=== PATIENT | female | born 1950 | race Caucasian/White ===

== ENCOUNTER 2021-06-12 03:20 | Inpatient (IN) | payer OTHER ==
[~2021-06-12] VITALS: Ht 160 cm; Wt 67.6 kg
[2021-06-12 03:25] VITALS: BP 145/80
--- NOTE | 2021-06-12 03:25 | NUR ---
PT [facility]. TAKEN TO BED 8
--- NOTE | 2021-06-12 03:40 | NUR ---
[facility] [facility], PER OFFICER ANTONIO PT. CALLED PD FOR STOLEN CAR. PT. STATES SHE IS ON HER WAY TO DAUGHTER'S HOUSE AND CAR WAS STOLEN. PT. CONFUSED ON HOW CAR GOT STOLEN AND CANNOT REMEMBER HOW SHE GOT HERE. PT. DENIES N/V/D/FEVER, ONLY STATING SHE ROLLED HER RIGHT ANKLE ON A CURB. PT. RATES PAIN 8/10 ON THE PAIN SCALE AT THIS TIME. SKIN IS PINK/WARM/DRY; AAOX3 BUT NOT TO LOCATION. PT. HAS EVEN AND STEADY GAIT; HR EVEN AND REGULAR; PT DENIES ANY FEVER, CP, SOB, OR COUGH AT THIS TIME; VSS; PATIENT POSITIONED FOR COMFORT; HOB ELEVATED; BEDRAILS UP X2; BED DOWN. ER MADE AWARE OF PT STATUS. PMH: DM 2, DEPRESSION ALLERGIES: NKDA Addendum: 06/12/21 at 0429 by MEDZSD MEDHX- HTN, DEPRESSION, HLYD, DM
--- NOTE | 2021-06-12 03:55 | NUR ---
EKG AT BEDSIDE
--- NOTE | 2021-06-12 03:58 | NUR ---
PER DELORES #[id number], SPOKE IN CONTACT WITH DAUGHTER (MINDI ZELAYA) AND STATES WILL BE COMING TO HOSPITAL FROM [place], [place].
--- NOTE | 2021-06-12 04:03 | NUR ---
PT TAKEN TO RADIOLOGY
--- NOTE | 2021-06-12 04:15 | NUR ---
PT RETURN FROM RADIOLOGY
--- NOTE | 2021-06-12 04:29 | NUR ---
PT. TAKEN TO BATHROOM VIA W/C FOR URINE SAMPLE.
--- NOTE | 2021-06-12 04:40 | NUR ---
LABS DRAWN AND TAKEN TO LAB.
[2021-06-12 04:55] LABS: BASOPHILS # (AUTO) 0.1 K/uL (0.00-0.22); BASOPHILS % (AUTO) 0.8 % (0.0-2.0); EOSINOPHILS # (AUTO) 0.1 K/uL (0-0.4); EOSINOPHILS % (AUTO) 1.7 % (0.0-4.0); HEMATOCRIT 39.8 % (36-48); HEMOGLOBIN 13.6 g/dL (12.0-16.0); LYMPHOCYTES # (AUTO) 1.4 K/uL (2.5-16.5); MEAN CORPUSCULAR HEMOGLOBIN 31 pg (27-31); MEAN CORPUSCULAR HGB CONC 34 g/dL (33-37); MEAN CORPUSCULAR VOLUME 89.7 fL (80-94); MONOCYTES # (AUTO) 0.6 K/uL (0.8-1.0); MONOCYTES % (AUTO) 7.8 % (1.7-9.3); NEUTROPHILS % (AUTO) 70.7 % (42.2-75.2); PLATELET COUNT (AUTO) 242 K/uL (140-450); RED BLOOD CELL COUNT(AUTO) 4.44 MIL/uL (4.20-5.40); RED CELL DISTRIBUTION WIDTH 13.1 % (11.6-13.7); WHITE BLOOD COUNT (AUTO) 7.1 K/uL (4.8-10.8)
[2021-06-12 05:12] LABS: ALBUMIN 4.3 g/dL (3.4-5.0); ANION GAP 8.3 (8-16); ASPARTATE AMINOTRANSFERASE 40 U/L (15-37); CARBON DIOXIDE 34.7 mmol/L (21-32); CHLORIDE 95 mmol/L (98-107); CREATININE 1.4 mg/dL (0.6-1.3); GFR ARICAN-AMERICAN 48 mL/min (>90); GLUCOSE 117 mg/dL (74-106); SODIUM SERUM 135 mmol/L (136-145); TOTAL BILIRUBIN 0.6 mg/dL (0.0-1.0); UREA NITROGEN, BLOOD 19 mg/dL (7-18)
[2021-06-12 05:14] LABS: ACETAMINOPHEN < 0.5 ug/ml (10-30); SALICYLATE < 2.8 mg/dL (2.8-20.0)
[2021-06-12 05:18] LABS: BARBITURATE, URINE NEGATIVE ng/ml (NEG <=200); BENZODIAZEPINE, URINE POSITIVE ng/mL (NEG <=200); CANNABINOID, URINE NEGATIVE ng/mL (NEG <=50); COCAINE, URINE NEGATIVE ng/mL (NEG <=300); OPIATE, URINE NEGATIVE ng/mL (NEG <=2000); PHENCYCLIDINE SCREEN,URINE NEGATIVE ng/mL (NEG <=25)
--- NOTE | 2021-06-12 05:30 | NUR ---
PT. IN SEMI TOVAR'S POSITION RESTING WITH EYES CLOSED. HR EVEN AND REGULAR, NO DISTRESS NOTED. VOICES NO COMPLAINTS AT THIS TIME.
[2021-06-12] MEDS ORDERED: NACL 0.9% 1,000 ML IV ONE (06:05)
[2021-06-12] MEDS ORDERED: POTASSIUM CHLORIDE 10 MEQ TABER PO ONE (06:05)
[2021-06-12] MEDS ORDERED: MAGNESIUM OXIDE 400 MG TAB PO ONE (06:05)
--- NOTE | 2021-06-12 06:32 | NUR ---
FAMILY AT BEDSIDE
--- NOTE | 2021-06-12 06:54 | NUR ---
PT TAKEN TO CT
--- NOTE | 2021-06-12 07:30 | NUR ---
REPORT GIVEN TO ITALO HAWKINS. TRANSFER OF CARE AT THIS TIME.
--- NOTE | 2021-06-12 08:00 | NUR ---
PT ALERT AND AWAKE, BREATHING EVEN AND UNLABORED. NO DISTRESS NOTED. WILL CONTINUE TO MONITOR.
--- NOTE | 2021-06-12 09:44 | NUR ---
SPOKE TO DR BONILLA REGARDING PT STATUS, STATES SHE WILL CALL AGAIN SOON
--- NOTE | 2021-06-12 10:00 | NUR ---
PT ON PHONE WITH TELEPSYCHE
--- NOTE | 2021-06-12 10:01 | NUR ---
Note wendy in ED - 06/12/21 at 1001 by MEDJJ PT RESTING WITH EYES CLOSED, BREATHING EVEN AND UNLABORED. NO DISTRESS NOTED. WILL CONTINUE TO MONITOR.
[2021-06-12] MEDS ORDERED: ONDANSETRON 4 MG/2 ML VIAL IM/IVP PRN (10:10)
[2021-06-12] MEDS ORDERED: MAG SULF 2000 MG/WATER PREMIX 50 ML IV PRN (10:10)
[2021-06-12] MEDS ORDERED: POTASSIUM CHLORIDE 40 MEQ, LIDOCAINE MPF 1% 25 MG in NACL 0.9% 250 ML IV PRN (10:10)
[2021-06-12] MEDS ORDERED: DOCUSATE SODIUM 100 MG GELCAP PO PRN (10:10)
[2021-06-12] MEDS ORDERED: ACETAMINOPHEN 325 MG TAB PO PRN (10:10)
[2021-06-12] MEDS ORDERED: SODIUM PHOS / POTASSIUM PHOS 1 PKT PDR PO PRN (10:10)
[2021-06-12 10:50] LABS: MAGNESIUM 1.8 mg/dL (1.8-2.4); PHOSPHORUS 3.4 mg/dL (2.5-4.9)
[2021-06-12] MEDS: NACL 0.9% 1,000 ML IV SCH (11:05)
--- NOTE | 2021-06-12 11:09 | NUR ---
PER DR BONILLA - PT WILL BE TAKEN OFF HOLD, OK FOR DC AFTER MEDICAL CLEARANCE.
--- NOTE | 2021-06-12 12:00 | NUR ---
PT EATING LUNCH AT THIS TIME. ALERT AND AWAKE, BREATHING EVEN AND UNLABORED. NO DISTRESS NOTED. WILL CONTINUE TO MONITOR.
--- NOTE | 2021-06-12 16:00 | NUR ---
PT ALERT AND AWAKE, BREATHING EVEN AND UNLABORED. NO DISTRESS NOTED. WILL CONTINUE TO MONITOR.
--- NOTE | 2021-06-12 17:39 | NUR ---
Patient will be admitted to care of Dr Fields. Admited to [facility]. Will go to room 124B. Belongings list completed. Report to Rubi PUCKETT.
[2021-06-12 18:00] VITALS: BP 140/82
[2021-06-12 19:11] LABS: FREE T4 (FREE THYROXINE) 1.42 ng/dL (0.76-1.46); THYROID STIMULATING HORMONE 0.98 uIU/mL (0.34-3.74)
[2021-06-12 20:00] VITALS: BP 128/68
[2021-06-12] MEDS: HYDROcodone/APAP 5/325 MG 1 TAB TAB PO PRN (22:55)
[2021-06-13] VITALS: BP 129/71
[2021-06-13] MEDS: NACL 0.9% 1,000 ML IV SCH ×2 (02:50→19:30)
[2021-06-13 04:00] VITALS: BP 129/69
--- NOTE | 2021-06-13 04:48 | NUR ---
pt slept well vss but she is confused , denies pain
[2021-06-13 06:05] LABS: BASOPHILS % (AUTO) 0.5 % (0.0-2.0); EOSINOPHILS # (AUTO) 0.2 K/uL (0-0.4); EOSINOPHILS % (AUTO) 2.3 % (0.0-4.0); HEMATOCRIT 37.1 % (36-48); HEMOGLOBIN 12.5 g/dL (12.0-16.0); LYMPHOCYTES # (AUTO) 1.4 K/uL (2.5-16.5); LYMPHOCYTES % (AUTO) 20.3 % (20.5-51.1); MEAN CORPUSCULAR HEMOGLOBIN 31 pg (27-31); MEAN CORPUSCULAR HGB CONC 34 g/dL (33-37); MEAN CORPUSCULAR VOLUME 90.5 fL (80-94); MONOCYTES # (AUTO) 0.6 K/uL (0.8-1.0); MONOCYTES % (AUTO) 8.3 % (1.7-9.3); NEUTROPHILS # (AUTO) 4.6 K/uL (1.8-7.7); NEUTROPHILS % (AUTO) 68.6 % (42.2-75.2); PLATELET COUNT (AUTO) 200 K/uL (140-450); WHITE BLOOD COUNT (AUTO) 6.7 K/uL (4.8-10.8)
--- NOTE | 2021-06-13 07:28 | NUR ---
PT HAS BEEN ENDORSED BY HEALTH AND WELLNESS INSTRUCTOR NURSE FOR CONTINUITY OF CARE, POC DISCUSSED. PT FOUND WONDERING THE HALLS. REORIENTED PT BACK TO THE BEDROOM AND EXPLAIN THE IMPORTANCE OF STAYING IN BED SO SHE DOES NOT CONTINUE TO INJURE HER RIGHT FOOT. PT VERBALZIED UNDERSTANDING. IV IS NOT INTACT AND NEEDS TO BE REPLACE. WILL REPLACE AFTER REPORT. ALL SAFETY MEASURES IN PLACE, BED ALARM ON, CALL LIGHT WITHIN REACH WILL CONTINUE TO MONITOR.
--- NOTE | 2021-06-13 07:28 | NUR ---
mrsa screen done
[2021-06-13 08:00] VITALS: BP 148/84
[2021-06-13 08:06] LABS: ANION GAP 10.2 (8-16); CARBON DIOXIDE 31.4 mmol/L (21-32); POTASSIUM 3.6 mmol/L (3.5-5.1)
--- NOTE | 2021-06-13 08:49 | NUR ---
PATIENT HAS BEEN SCREENED AND CATEGORIZED LOW NUTRITION RISK. PATIENT WILL BE SEEN WITHIN 7 DAYS OF ADMISSION. 06/18/[address]
[2021-06-13] MEDS: ATORVASTATIN 20 MG TAB PO SCH (09:19)
[2021-06-13] MEDS: PANTOPRAZOLE 40 MG TABEC PO SCH (09:20)
[2021-06-13] MEDS: lisinopriL 5 MG TAB PO SCH (09:20)
--- NOTE | 2021-06-13 09:27 | NUR ---
KIRBY MEDICATION ADMINISTERED PER MD ORDER. PT TOLERATED ADMINISTRATION. NEW IV INSERTED ON HER RIGHT WRIST 20G, RESTARTED FLUIDS AT 60 NS. ALL SAFETY MEASURES IN PLACE. CALL LIGHT WITHIN REACH WILL CONTINUE TO MONITOR.
--- NOTE | 2021-06-13 10:27 | NUR ---
SPOKE WITH DAUGHTER, IN CONTACT LIST. ANSWERED ALL OF DAUGHTERS QUESTIONS.
--- NOTE | 2021-06-13 12:47 | NUR ---
BROUGHT PT A BEDSIDE COMMODE SO PT CAN TRANSFER TO THAT WITHOUT PUTTING PRESSURE ON RIGHT FOOT. ALL SAFETY MEASURES IN PLACE. CALL LIGHT WITHIN REACH. WILL CONTINUE TO MONITOR.
[2021-06-13] MEDS: DULoxetine 30 MG CAPDR PO SCH (14:25)
--- NOTE | 2021-06-13 14:28 | NUR ---
COLLECT URINALYSIS AND TAKEN TO THE LAB. PT IS STABLE AND REPORTS ALL NEEDS ARE MET. ALL SAFETY MEASURES IN PLACE. CALL LIGHT WITHIN REACH . WILL CONTINUE TO MONITOR.
[2021-06-13 15:30] LABS: APPEARANCE,URINE CLEAR (CLEAR); BILIRUBIN,URINE NEGATIVE (NEGATIVE); BLOOD, URINE NEGATIVE (NEGATIVE); COLOR,URINE YELLOW (YELLOW); LEUKOCYTE ESTERASE ,URINE 1+ (NEGATIVE); NITRITE, URINE NEGATIVE (NEGATIVE); PH,URINE 5.5 (5.0-9.0); UGLUCOSE NEGATIVE (NEGATIVE)
[2021-06-13 16:47] LABS: RBC,URINE 0-5 /HPF (0-5)
--- NOTE | 2021-06-13 19:18 | NUR ---
PT HAS BEEN ENDORSED TO HAND TWISTER NURSE FOR CONTINUITY OF CARE. PT IS STABLE.
[2021-06-13 20:00] VITALS: BP 134/78
--- NOTE | 2021-06-13 20:00 | NUR ---
RECEIVED PATIENT AMBULATORY TO BEDSIDE COMMODE AND BATHROOM ALERT AND COHERENT WITH SOME CONFUSION AND FORGETFULNESS.
--- NOTE | 2021-06-13 21:00 | NUR ---
ALL DUE MEDS WERE GIVEN, TOLERATED WELL.
--- NOTE | 2021-06-13 23:04 | NUR ---
REPORT GIVEN TO BARB, THE CHARGE NURSE. TRANSFER OF CARE ENDORSED.
--- NOTE | 2021-06-13 23:43 | NUR ---
RECEIVED REPORT OF PT IN STABLE CONDITION.IVF INFUSING WELL.PT IS CONFUSED OFF AND ON.CALL LIGHT WITHIN REACH.NO S/S OF ANY DISTRESS NOTED.WILL CONT.MONITORING.
--- NOTE | 2021-06-14 03:00 | NUR ---
SLEEPING.NO DISTRESS NOTED AT THIS TIME.CALL LIGHT IN REACH.
[2021-06-14 04:00] VITALS: BP 128/69
[2021-06-14 06:17] LABS: BASOPHILS % (AUTO) 0.5 % (0.0-2.0); EOSINOPHILS # (AUTO) 0.3 K/uL (0-0.4); EOSINOPHILS % (AUTO) 4.5 % (0.0-4.0); HEMATOCRIT 36.4 % (36-48); HEMOGLOBIN 12.2 g/dL (12.0-16.0); LYMPHOCYTES # (AUTO) 1.5 K/uL (2.5-16.5); LYMPHOCYTES % (AUTO) 27.2 % (20.5-51.1); MEAN CORPUSCULAR HEMOGLOBIN 31 pg (27-31); MEAN CORPUSCULAR HGB CONC 34 g/dL (33-37); MEAN CORPUSCULAR VOLUME 90.9 fL (80-94); MONOCYTES # (AUTO) 0.4 K/uL (0.8-1.0); MONOCYTES % (AUTO) 6.8 % (1.7-9.3); NEUTROPHILS # (AUTO) 3.4 K/uL (1.8-7.7); PLATELET COUNT (AUTO) 216 K/uL (140-450); RED BLOOD CELL COUNT(AUTO) 4.01 MIL/uL (4.20-5.40); RED CELL DISTRIBUTION WIDTH 13.3 % (11.6-13.7); WHITE BLOOD COUNT (AUTO) 5.7 K/uL (4.8-10.8)
--- NOTE | 2021-06-14 06:35 | NUR ---
SLEPT WELL.FREQUENT ROUND DONE.NO S/S OF ANY DISTRESS NOTED AT PRESENT TIME.
[2021-06-14 06:48] LABS: ANION GAP 9.3 (8-16); CARBON DIOXIDE 30.4 mmol/L (21-32); CREATININE 0.9 mg/dL (0.6-1.3); POTASSIUM 3.7 mmol/L (3.5-5.1)
--- NOTE | 2021-06-14 07:26 | NUR ---
PT HAS BEEN ENDORSED BY IGNITER CAPPER NURSE FOR CONTINUITY OF CARE, POC DISCUSSED. PT IS ASLEEP IN BED WITH NO ACUTE S/S OF DISTRESS, PT CHEST RISING AND FALLING EVEN AND UNLABORED ON ROOM AIR. PT HAS BEDSIDE COMMODE. PT HAS A RIGHT FOREARM 20G ON SALINE LOCK DUE TO PTS CONSISTENT MOVING THROUGHOUT THE NIGHT, WILL RECONNECT. IGNITER CAPPER ABX WAS NOT ADMINISTERED. WILL CONTINUE FOLLOWING EMAR. ALL SAFETY MEASURES IN PLACE. CALL LIGHT WITHIN REACH. WILL CONTINUE TO MONITOR.
[2021-06-14 08:00] VITALS: BP 152/62
--- NOTE | 2021-06-14 08:42 | NUR ---
DC PLANNING: CM SPOKE WITH PATIENTS DAUGHTER MINDI ZELAYA ([phone]) AND HER SISTER CHRISTEN CROCKETT ([phone]) THE PATIENT LIVES IN A SENIOR APARTMENT IN [place] AND WAS VISITING HERE TO FINALIZE MOVING ARRANGEMENTS THERE. PER HER FAMILY PATIENT HAS HAD EPISODES OF CONFUSION IN THE LAST FEW MONTHS AND AT LEAST ONE EPISODE OF GETTING LOST WHILE DRIVING. FAMILY AWARE THAT PATIENT IS GOING TO SURGERY FOR HER FOOT FRACTURE, ENDORSED THAT THE PLAN REGARDING HER THYROID MASS IS FOR A GENERAL SURGERY CONSULT. PATIENT HAS NO PRIOR H/O HOME HEALTH OR DME, DOES SOMETIMES USE A CANE TO WALK. PATIENTS DAUGHTER LIVES IN [place], DISCUSSED POTENTIAL OPTION OF PATIENT GOING TO SNF IN THIS AREA AFTER DISCHARGE SHE HAS NOT FOUND A PCP IN [place]. DISCUSSED THE NEED FOR PATIENT FOLLOW UP WITH THE TREATING PHYSICIANS IN THIS AREA, ALSO DISCUSSED FAMILY TAKING PATIENT BACK TO [facility] AFTER DISCHARGE. FAMILY IS UNDECIDED AT THIS POINT, OPTIONS FOR DISCHARGE ARE SNF IN THIS AREA VERSUS FAMILY TAKING THE PATIENT HOME WITH THEM. CM WILL FOLLOW FOR NEEDS. Addendum: 06/17/21 at 1205 by Obdulia Fountain CM DC PLANNING: ETIENNE SPOKE AT LENGTH WITH PATIENTS DAUGHTER MINDI, PATIENT IS SCHEDULED FOR ORIF OF THE RIGHT FOOT TODAY. MINDI IN AGREEMENT WITH HAVING PATIENT GO TO SNF FOR WOUND CARE AND P.T., ASKED THAT A REFERRAL BE SENT TO [facility] HER BROTHER IN [place] [employer]KS THERE SOIL FERTILITY EXTENSION SPECIALIST. INFORMATION FAXED TO [facility], CM WILL FOLLOW UP. Addendum: 06/18/21 at 1116 by Obdulia Fountain CM DC PLANNING: ETIENNE SPOKE WITH PATIENTS DAUGHTER MINDI TO LET HER KNOW THAT PATIENT WILL DC [facility] TODAY WITH DR. CAPUTO FOLLOWING. FOLLOW UP APPOINTMENTS WITH DR ZUÑIGA AND DR MEYERS MADE FOR PATIENT (SEE ORDERS) MONY AT [facility] AWARE OF APPOINTMENTS, ORDERS WITH DATES, TIMES AND CONTACT INFORMATION FAXED TO HER. ETIENNE SPOKE WITH VALENTE AT [facility] REGARDING TRANSPORT, VALENTE STATES THAT THE FACILITY CAN BILL [employer] PATIENT IS MEDICARE PRIMARY AND TRANSPORT DOESN'T NEED TO ISSUE AUTH. ASKED MONY TO ARRANGE TRANSPORT AND GIVE ROOM NUMBER, ETIENNE WILL CONTINUE TO FOLLOW. Addendum: 06/18/21 at 1210 by Obdulia Fountain CM DC PLANNING: PATIENT ASSIGNED ROOM 711A, [facility] TO PICK HER UP AT 3:00 PM TODAY. FACILITY PHONE NUMBER AND ROOM ENDORSED TO PATIENTS RN [facility]. CM WILL FOLLOW NEEDED.
[2021-06-14] MEDS: lisinopriL 5 MG TAB PO SCH (09:55)
[2021-06-14] MEDS: DULoxetine 30 MG CAPDR PO SCH (09:55)
[2021-06-14] MEDS: PANTOPRAZOLE 40 MG TABEC PO SCH (09:55)
[2021-06-14] MEDS: ATORVASTATIN 20 MG TAB PO SCH (09:56)
--- NOTE | 2021-06-14 09:59 | NUR ---
HELD HEPARIN DUE TO UNKNOWN/ DATE/TIME FOR PROCEDURE. ASKED DOCTOR NO RESPONSE AT THIS TIME. ALL OTHER MEDICATIONS ADMINISTERED PER MD ORDER WILL CONTINUE TO MONITOR PT FOR SIDE EFFECTS OF MEDICATIONS.
--- NOTE | 2021-06-14 10:21 | NUR ---
STARTED NEW IV LINE ON LEFT FOREARM 22 FRIDA, GOOD BLOOD RETURN ON INSERTION, FLUSHED, AND PATENT.
[2021-06-14] MEDS: NACL 0.9% 1,000 ML IV SCH (12:47)
--- NOTE | 2021-06-14 13:04 | NUR ---
ROUNDED ON PT, PT IV FLUIDS RUNNING. PT DENIES PAIN AND REPORTS ALL NEEDS ARE MET. PT IS STABLE AND WILL CONTINUE TO MONITOR.
[2021-06-14] MEDS: MORPHINE SULFATE 2 MG/ML SYR IVP PRN (16:09)
--- NOTE | 2021-06-14 16:11 | NUR ---
PT COMPLAIN OF PAIN 06/04 MEDICATED WITH MORPHINE SULFATE WILL CONTINUE TO ASSESS PT FOR PAIN AND SIDE EFFECTS OF MORPHINE.
--- NOTE | 2021-06-14 18:07 | NUR ---
PT REPORTS ALL NEEDS ARE MET AT THIS TIME, CALL LIGHT WITHIN REACH. WILL CONTINUE TO MONITOR.
--- NOTE | 2021-06-14 19:09 | NUR ---
PT HAS BEEN ENDORSED TO LAW OFFICE RECEPTIONIST NURSE IN STABLE CONDITION, POC DISCUSSED.
--- NOTE | 2021-06-14 19:10 | NUR ---
RECEIVED PT AAOX3, PT W/ RT FOOT SPLINT S/P FALL INJURY 2NDRY TO DISEASE PROCESS, RESP REG NON-LABORED, NAD NOTED.
[2021-06-14 20:35] VITALS: BP 130/63
--- NOTE | 2021-06-15 00:30 | NUR ---
ON ROUNDS PT ASLEEP, RESP REG NON-LABORED, NAD NOTED.
[2021-06-15 04:15] VITALS: BP 152/87
[2021-06-15] MEDS: NACL 0.9% 1,000 ML IV SCH ×2 (04:42→21:30)
[2021-06-15 06:06] LABS: BASOPHILS % (AUTO) 0.8 % (0.0-2.0); EOSINOPHILS # (AUTO) 0.4 K/uL (0-0.4); EOSINOPHILS % (AUTO) 6.4 % (0.0-4.0); HEMATOCRIT 34.5 % (36-48); HEMOGLOBIN 11.7 g/dL (12.0-16.0); LYMPHOCYTES # (AUTO) 1.5 K/uL (2.5-16.5); LYMPHOCYTES % (AUTO) 25.6 % (20.5-51.1); MEAN CORPUSCULAR HEMOGLOBIN 31 pg (27-31); MEAN CORPUSCULAR HGB CONC 34 g/dL (33-37); MEAN CORPUSCULAR VOLUME 90.1 fL (80-94); MONOCYTES # (AUTO) 0.4 K/uL (0.8-1.0); MONOCYTES % (AUTO) 7.7 % (1.7-9.3); NEUTROPHILS # (AUTO) 3.4 K/uL (1.8-7.7); NEUTROPHILS % (AUTO) 59.5 % (42.2-75.2); PLATELET COUNT (AUTO) 201 K/uL (140-450); RED BLOOD CELL COUNT(AUTO) 3.83 MIL/uL (4.20-5.40); RED CELL DISTRIBUTION WIDTH 12.8 % (11.6-13.7); WHITE BLOOD COUNT (AUTO) 5.7 K/uL (4.8-10.8)
[2021-06-15 06:31] LABS: MAGNESIUM 1.5 mg/dL (1.8-2.4); PHOSPHORUS 2.5 mg/dL (2.5-4.9)
[2021-06-15 06:37] LABS: ANION GAP 8.7 (8-16); CARBON DIOXIDE 31.8 mmol/L (21-32); CREATININE 0.9 mg/dL (0.6-1.3); POTASSIUM 4.5 mmol/L (3.5-5.1)
--- NOTE | 2021-06-15 07:25 | NUR ---
RECEIVED REPORT FROM SALES PERFORMANCE ANALYST RN FOR CONTINUITY OF CARE. PATIENT IS RESTING IN BED. RESPIRATIONS ARE EVEN AND UNLABORED. NO S/S OF DISTRESS. ALL SAFETY PRECAUTIONS IN PLACE.
[2021-06-15 08:00] VITALS: BP 157/81
[2021-06-15] MEDS: lisinopriL 5 MG TAB PO SCH (09:18)
[2021-06-15] MEDS: ATORVASTATIN 20 MG TAB PO SCH (09:18)
[2021-06-15] MEDS: PANTOPRAZOLE 40 MG TABEC PO SCH (09:18)
[2021-06-15] MEDS: DULoxetine 30 MG CAPDR PO SCH (09:19)
--- NOTE | 2021-06-15 09:25 | NUR ---
ADMINISTERED SCHEDULED MEDICATIONS. PATIENT VERBALIZED UNDERSTANDING. NO S/S OF DISTRESS. ALL SAFETY PRECAUTIONS IN PLACE.
--- NOTE | 2021-06-15 11:45 | NUR ---
CHECKED ON PATIENT. PATIENT DOES NOT COMPLAIN OF ANY PAIN. NO S/S OF DISTRESS. ALL SAFETY PRECAUTIONS IN PLACE.
--- NOTE | 2021-06-15 13:55 | NUR ---
CHECKED ON PATIENT. PATIENT IS RESTING IN BED. NO S/S OF DISTRESS. ALL SAFETY PRECAUTIONS IN PLACE. WILL CONTINUE TO MONITOR.
--- NOTE | 2021-06-15 15:30 | NUR ---
CHECKED ON PATIENT. PATIENT IS RESTING AND STABLE. ALL SAFETY PRECAUTIONS IN PLACE. WILL CONTINUE TO MONITOR.
[2021-06-15 16:00] VITALS: BP 153/100
--- NOTE | 2021-06-15 16:30 | NUR ---
DR MEYERS AT BEDSIDE WITH PATIENT DISCUSSING POC. PATIENT VERBALIZED UNDERSTANDING.
[2021-06-15] MEDS ORDERED: MAG SULF 2000 MG/WATER PREMIX 50 ML IV SCH (17:00)
--- NOTE | 2021-06-15 18:05 | NUR ---
CHECKED ON PATIENT. PATIENT REMAINS STABLE. NO S/S OF DISTRESS. ALL SAFETY PRECAUTIONS IN PLACE.
--- NOTE | 2021-06-15 19:44 | NUR ---
ENDORSED PATIENT TO CUTTING AND PRINTING MACHINE OPERATOR RN FOR CONTINUITY OF CARE. PATIENT STABLE. ALL SAFETY PRECAUTIONS IN PLACE.
--- NOTE | 2021-06-15 19:44 | NUR ---
RECEIVED REPORT FROM DAYSHIFT NURSE FOR CONTINUITY OF CARE. PATIENT IN STABLE CONDITION
[2021-06-15 20:00] VITALS: BP 131/80
--- NOTE | 2021-06-15 21:00 | NUR ---
ALL SCHEDULED MEDS GIVEN. PT TOLERATED WELL.
--- NOTE | 2021-06-15 22:00 | NUR ---
PATIENT RESTING ON BED. REPLACED SOILED LINENS ON BEDSIDE COMMODE. GAVE BLANKET FOR COMFORT.
--- NOTE | 2021-06-16 00:40 | NUR ---
PATIENT ASLEEP, NO SIGNS OF DISTRESS, ON ROOM AIR, SAFETY MEASURES IMPLEMENTED, CALL LIGHT WITHIN REACH.
[2021-06-16 04:00] VITALS: BP 147/82
--- NOTE | 2021-06-16 07:16 | NUR ---
ENDORSE PATIENT TO DAY SHIFT RN FOR CONTINUITY OF CARE. PATIENT IN STABLE CONDITION.
--- NOTE | 2021-06-16 08:00 | NUR ---
RECEIVED REPORT FROM [facility] FOR CONTINUITY OF CARE. INITIAL ASSESSMENT INITIATED. PATIENT IS ALERT AWAKE ORIENTED WITH BOUTS OF CONFUSION AT TIMES. WITH IVF ON GOING AND INFUSING WELL. PATIENT ASKING WHEN IS HER SURGERY, GAVE INFORMATION AND VERBALIZED UNDERSTANDING. NEEDS ATTENDED. WILL CONTINUE TO MONITOR.
[2021-06-16] MEDS: ATORVASTATIN 20 MG TAB PO SCH (08:58)
[2021-06-16] MEDS: PANTOPRAZOLE 40 MG TABEC PO SCH (08:58)
[2021-06-16] MEDS: DULoxetine 30 MG CAPDR PO SCH (08:58)
[2021-06-16] MEDS: lisinopriL 5 MG TAB PO SCH (08:59)
--- NOTE | 2021-06-16 10:00 | NUR ---
PATIENT USES BEDSIDE COMMODE, OBSERVED NON WEIGHT BEARING ON HER RIGHT FOOT. WILL CONTINUE TO MONITOR.
[2021-06-16 10:04] LABS: BASOPHILS % (AUTO) 0.7 % (0.0-2.0); EOSINOPHILS # (AUTO) 0.1 K/uL (0-0.4); EOSINOPHILS % (AUTO) 3.1 % (0.0-4.0); HEMATOCRIT 37.8 % (36-48); HEMOGLOBIN 12.8 g/dL (12.0-16.0); LYMPHOCYTES # (AUTO) 0.8 K/uL (2.5-16.5); MEAN CORPUSCULAR HEMOGLOBIN 31 pg (27-31); MEAN CORPUSCULAR HGB CONC 34 g/dL (33-37); MEAN CORPUSCULAR VOLUME 90.3 fL (80-94); MONOCYTES # (AUTO) 0.2 K/uL (0.8-1.0); MONOCYTES % (AUTO) 5.8 % (1.7-9.3); NEUTROPHILS # (AUTO) 3.1 K/uL (1.8-7.7); NEUTROPHILS % (AUTO) 71.4 % (42.2-75.2); PLATELET COUNT (AUTO) 243 K/uL (140-450); RED BLOOD CELL COUNT(AUTO) 4.19 MIL/uL (4.20-5.40); RED CELL DISTRIBUTION WIDTH 13.1 % (11.6-13.7); WHITE BLOOD COUNT (AUTO) 4.3 K/uL (4.8-10.8)
[2021-06-16 10:09] LABS: ANION GAP 9.5 (8-16); CARBON DIOXIDE 31.4 mmol/L (21-32); CREATININE 0.8 mg/dL (0.6-1.3); POTASSIUM 3.9 mmol/L (3.5-5.1)
--- NOTE | 2021-06-16 11:35 | NUR ---
REPORT GIVEN TO ITALO JONAS FOR CONTINUITY OF CARE.
--- NOTE | 2021-06-16 11:35 | NUR ---
RECEIVED REPORT FROM JIM FOR CONTINUITY OF CARE.
[2021-06-16] MEDS: NACL 0.9% 1,000 ML IV SCH (14:35)
--- NOTE | 2021-06-16 14:37 | NUR ---
CHECKED ON PATIENT. PATIENT SLEEPING RESPIRATION EVEN UNLABORED ON ROOM AIR. NO DISTRESS NOTED. WILL CONTINUE TO MONITOR
[2021-06-16 16:00] VITALS: BP 164/84
--- NOTE | 2021-06-16 17:49 | NUR ---
CHECKED ON PATIENT, PATIENT IS AWAKE, RESPIRATION EVEN UNLABORED ON ROOM AIR. NO DISTRESS NOTED
--- NOTE | 2021-06-16 17:50 | NUR ---
IF POSSIBLE PLEASE CALL PATIENT DAUGHTER MINDI BEFORE HER SURGERY TOMORROW. PHONE NUMBER [phone]
--- NOTE | 2021-06-16 18:32 | NUR ---
PATIENT ACCIDENTALLY PULLED OUT HER IV. CANNULA TIP INTACT. NO ACTIVE BLEEDING NOTED. INSERTED NEW ONE ON THE LEFT AC 20G. TOLERATED IT WELL. WILL CONTINUE TO MONITOR
--- NOTE | 2021-06-16 19:31 | NUR ---
ENDORSED PATIENT TO COMMERCIAL LOAN CLOSER NURSE FOR CONTINUITY OF CARE
--- NOTE | 2021-06-16 20:00 | NUR ---
PATIENT RECEIVED IN BED ALERT AND ORIENTED X 1, WITH CONFUSION ABLE TO SPEAK NEEDS, BUT NOT SENSIBLE TO REALITY NO S/S OF DISTRESS.
[2021-06-16] MEDS: MORPHINE SULFATE 2 MG/ML SYR IVP PRN (20:48)
--- NOTE | 2021-06-16 21:00 | NUR ---
ALL DUE MEDICATIONS GIVEN TOLERATED WELL, A DOSE OF MORPHINE FOR PAIN 8/10 WAS GIVEN VIA IVP, TOLERATED WELL.
--- NOTE | 2021-06-17 | NUR ---
PATIENT WAS CALMLY ASLEEP
--- NOTE | 2021-06-17 02:00 | NUR ---
PATIENT WAS CALMLY ASLEEP
[2021-06-17 06:12] LABS: BASOPHILS % (AUTO) 0.8 % (0.0-2.0); EOSINOPHILS # (AUTO) 0.2 K/uL (0-0.4); HEMATOCRIT 38.2 % (36-48); HEMOGLOBIN 12.9 g/dL (12.0-16.0); LYMPHOCYTES % (AUTO) 21.1 % (20.5-51.1); MEAN CORPUSCULAR HEMOGLOBIN 31 pg (27-31); MEAN CORPUSCULAR HGB CONC 34 g/dL (33-37); MEAN CORPUSCULAR VOLUME 91.1 fL (80-94); MONOCYTES # (AUTO) 0.4 K/uL (0.8-1.0); MONOCYTES % (AUTO) 8.4 % (1.7-9.3); NEUTROPHILS # (AUTO) 3.2 K/uL (1.8-7.7); NEUTROPHILS % (AUTO) 65.7 % (42.2-75.2); PLATELET COUNT (AUTO) 236 K/uL (140-450); RED BLOOD CELL COUNT(AUTO) 4.19 MIL/uL (4.20-5.40); RED CELL DISTRIBUTION WIDTH 12.9 % (11.6-13.7); WHITE BLOOD COUNT (AUTO) 4.9 K/uL (4.8-10.8)
[2021-06-17 06:19] LABS: ANION GAP 11.5 (8-16); CARBON DIOXIDE 30.6 mmol/L (21-32); POTASSIUM 4.1 mmol/L (3.5-5.1)
[2021-06-17 06:23] LABS: MAGNESIUM 1.6 mg/dL (1.8-2.4); PHOSPHORUS 3.2 mg/dL (2.5-4.9)
[2021-06-17] MEDS: NACL 0.9% 1,000 ML IV SCH ×2 (06:50→23:30)
--- NOTE | 2021-06-17 07:59 | NUR ---
ALL REPORTS WERE GIVEN, TRANSFER OF CARE ENDORSED.
[2021-06-17 08:00] VITALS: BP 151/71
--- NOTE | 2021-06-17 08:01 | NUR ---
RECEIVED REPORT FROM BUSINESS OBJECTS RN FOR CONTINUITY OF CARE. PATIENT IS AWAKE AND SHOWS NO S/S OF DISTRESS. ALL SAFETY PRECAUTIONS IN PLACE.
[2021-06-17] MEDS ORDERED: BUPIVACAINE-MPF 0.5% 30 ML VIAL INJ ONE (08:08)
[2021-06-17] MEDS ORDERED: HYDROGEN PEROXIDE 3% 240 ML BTL TP ONE (08:08)
[2021-06-17] MEDS: ATORVASTATIN 20 MG TAB PO SCH (08:40)
[2021-06-17] MEDS: DULoxetine 30 MG CAPDR PO SCH (08:40)
[2021-06-17] MEDS: PANTOPRAZOLE 40 MG TABEC PO SCH (08:40)
[2021-06-17] MEDS: lisinopriL 5 MG TAB PO SCH (08:41)
--- NOTE | 2021-06-17 08:59 | NUR ---
DR ZUÑIGA AT PATIENT BEDSIDE DISCUSSING PROCEDURE. PATIENT VERBALIZED UNDERSTANDING. OR NURSES ALSO TALKED TO PATIENT'S DAUGHTER MINDI FOR CONSENT.
--- NOTE | 2021-06-17 09:13 | NUR ---
OR NURSES ON UNIT TO TAKE PATIENT TO OR FOR PROCEDURE. NEW IV WAS PLACED AT RIGHT AC 22G. PATIENT IS STABLE.
[2021-06-17] MEDS ORDERED: fentaNYL citrate 0.05 MG/ML VIAL ONE (09:18)
[2021-06-17] MEDS ORDERED: PROPOFOL 200 MG/20 ML VIAL IV ONE (09:20)
[2021-06-17] MEDS ORDERED: DESFLURANE 240 ML BTL INH ONE (09:20)
[2021-06-17] MEDS ORDERED: METOCLOPRAMIDE 10 MG/2 ML INJ VIAL ONE (09:31)
[2021-06-17] MEDS ORDERED: DEXAMETHASONE 4 MG/ML VIAL ONE (09:31)
[2021-06-17] MEDS ORDERED: ONDANSETRON 4 MG/2 ML VIAL ONE (09:31)
[2021-06-17] MEDS ORDERED: KETOROLAC 30 MG/ML VIAL ONE (11:30)
[2021-06-17] MEDS ORDERED: ONDANSETRON 4 MG/2 ML VIAL IVP PRN (11:35)
--- NOTE | 2021-06-17 12:19 | NUR ---
PATIENT BACK FROM PROCEDURE. PATIENT IS STABLE. ALL SAFETY PRECAUTIONS IN PLACE.
--- NOTE | 2021-06-17 13:03 | NUR ---
NOTIFIED DR HALL OF PATIENT'S STATUS. PATIENT IS HAVING EPISODES OF CONFUSION AND IS A&O X2. DR HALL PUT IN ORDER FOR 1:1 SITTER FOR SAFETY. WILL CONTINUE TO MONITOR.
--- NOTE | 2021-06-17 15:15 | NUR ---
CHECKED ON PATIENT. PATIENT IS RESTING IN BED. NO S/S OF DISTRESS. ALL SAFETY PRECAUTIONS IN PLACE.
[2021-06-17 16:00] VITALS: BP 150/76
[2021-06-17] MEDS: MORPHINE SULFATE 2 MG/ML SYR IVP PRN (16:26)
--- NOTE | 2021-06-17 19:29 | NUR ---
ENDORSED PATIENT TO BOX BENDER RN FOR CONTINUITY OF CARE. PATIENT STABLE.
[2021-06-17 20:00] VITALS: BP 137/77
--- NOTE | 2021-06-17 20:00 | NUR ---
RECEIVED PATIENT IN BED WITH 1:1 SITTER. PATIENT AWAKE AND ALERT BUT PLEASANTLY CONFUSED. PT ORIENTED TO SELF BUT NOT TO TIME, PLACE AND SITUATION. RIGHT LEG CAST NOTED. NO C/O PAIN AT THIS TIME. BED LOWERED WITH CALL LIGHT WITHIN REACH. WILL CONTINUE TO MONITOR
--- NOTE | 2021-06-17 20:12 | NUR ---
PT SEEN BY DR VARGAS
[2021-06-17] MEDS: HYDROcodone/APAP 5/325 MG 1 TAB TAB PO PRN (20:49)
--- NOTE | 2021-06-17 23:30 | NUR ---
ASSISTED PATIENT TO THE BEDSIDE COMMODE. PT MAINTAINED NON WEIGHT BEARING STATUS ON THE RIGHT LEG. PT VOIDED.
[2021-06-17] MEDS: LORazepam 2 MG/ML VIAL IM/IVP PRN (23:38)
--- NOTE | 2021-06-18 01:00 | NUR ---
PATIENT AWAKE IN BED. NO S/S OF DISTRESS NOTED
[2021-06-18] MEDS: HYDROcodone/APAP 5/325 MG 1 TAB TAB PO PRN ×2 (01:10→14:59)
[2021-06-18] MEDS: NACL 0.9% 1,000 ML IV SCH (02:57)
[2021-06-18 04:00] VITALS: BP 156/80
[2021-06-18] MEDS: LORazepam 2 MG/ML VIAL IM/IVP PRN (04:25)
--- NOTE | 2021-06-18 04:25 | NUR ---
PT IS RESTLESS AND ATTEMPTING TO GET OUT OF BED. PT WITH POOR SAFETY AWARENESS. PT REORIENTED TO TIME, PLACE AND SITUATION BUT STILL CONTINUES TO GET OUT OF BED. PRN MEDICATION ADMINISTERED
[2021-06-18 06:13] LABS: BASOPHILS % (AUTO) 0.4 % (0.0-2.0); EOSINOPHILS # (AUTO) 0.1 K/uL (0-0.4); EOSINOPHILS % (AUTO) 0.7 % (0.0-4.0); HEMATOCRIT 37.2 % (36-48); HEMOGLOBIN 12.5 g/dL (12.0-16.0); LYMPHOCYTES % (AUTO) 19.3 % (20.5-51.1); MEAN CORPUSCULAR HEMOGLOBIN 31 pg (27-31); MEAN CORPUSCULAR HGB CONC 34 g/dL (33-37); MEAN CORPUSCULAR VOLUME 90.7 fL (80-94); MONOCYTES # (AUTO) 0.9 K/uL (0.8-1.0); MONOCYTES % (AUTO) 8.6 % (1.7-9.3); NEUTROPHILS # (AUTO) 7.5 K/uL (1.8-7.7); PLATELET COUNT (AUTO) 264 K/uL (140-450); RED CELL DISTRIBUTION WIDTH 13.1 % (11.6-13.7); WHITE BLOOD COUNT (AUTO) 10.6 K/uL (4.8-10.8)
--- NOTE | 2021-06-18 06:24 | NUR ---
PT ASLEEP IN BED. NO S/S OF DISTRESS NOTED
[2021-06-18 06:28] LABS: ANION GAP 11.8 (8-16); CARBON DIOXIDE 27.9 mmol/L (21-32); CREATININE 1.1 mg/dL (0.6-1.3); POTASSIUM 3.7 mmol/L (3.5-5.1)
[2021-06-18 06:40] LABS: MAGNESIUM 2.1 mg/dL (1.8-2.4); PHOSPHORUS 3.2 mg/dL (2.5-4.9)
--- NOTE | 2021-06-18 07:28 | NUR ---
PT REPORT GIVEN TO AM NURSE. PT ENDORSED IN STABLE CONDITION
--- NOTE | 2021-06-18 07:30 | NUR ---
RECEIVED REPORT FROM DAY SHIFT NURSE. AOX1, CONFUSED, ATTEMPTS TO AMBULATE WITHOUT ASSISST, SITTER AT BEDSIDE, ABLE TO MAKE NEEDS KNOWN, ON BEDREST, B/B CONTINENT. NO C/O PAIN, NO SOB. WITH IV ON RFA 22G NS AT 60CC/HR. ON REGULAR DIET. S/P ORIF OF R FIFTH METATARSAL FX, CAST INTACT. SAFETY PRECAUTIONS IN PLACE. CALL LIGHT WITHIN REACH. WILL CONTINUE TO MONITOR
[2021-06-18 08:00] VITALS: BP 134/72
[2021-06-18] MEDS: DULoxetine 30 MG CAPDR PO SCH (08:36)
[2021-06-18] MEDS: ATORVASTATIN 20 MG TAB PO SCH (08:36)
[2021-06-18] MEDS: PANTOPRAZOLE 40 MG TABEC PO SCH (08:36)
--- NOTE | 2021-06-18 08:55 | NUR ---
DUE MORNING MEDS GIVEN. TOLERATED PO MEDS WELL
[2021-06-18] MEDS ORDERED: lisinopriL 10 MG TAB PO SCH (09:00)
[2021-06-18] MEDS ORDERED: DULO30EC PO (10:02)
[2021-06-18] MEDS ORDERED: DOCU-299 PO (10:02)
[2021-06-18] MEDS ORDERED: ATOR20TA40 PO (10:02)
[2021-06-18] MEDS ORDERED: ACET-1182 PO (10:02)
[2021-06-18] MEDS ORDERED: LISI10TA30 PO (10:02)
[2021-06-18] MEDS ORDERED: ACET-9525 PO (10:02)
[2021-06-18] MEDS ORDERED: HEPA500056 SUBQ (10:02)
[2021-06-18] MEDS ORDERED: PANT40EC56 PO (10:02)
--- NOTE | 2021-06-18 11:05 | NUR ---
PT RESTING IN BED. SITTER AT BEDSIDE, NO C/O PAIN, NO SOB
--- NOTE | 2021-06-18 12:39 | NUR ---
REPORT GIVEN TO JUAN PABLO GARCIA
--- NOTE | 2021-06-18 13:33 | NUR ---
PT AWAKE AND RESTING IN BED. NO SOB, AFEBRILE, NO C/O PAIN
--- NOTE | 2021-06-18 13:43 | NUR ---
06/18/21 RD INITIAL ASSESSMENT COMPLETED PLEASE REFER TO NUTRITION ASSESSMENT UNDER CARE ACTIVITY FOR ESTIMATED NUTRITIONAL NEEDS. 1. CONTINUE HIGH PROTEIN / HIGH KCAL DIET TOLERATED 2. RECOMMEND ENSURE BID 3. ENCOURAGE PO INTAKE >75% 4. RD TO FOLLOW-UP 5-7 DAYS, LOW RISK TALON RODRÍGUEZ, RD
--- NOTE | 2021-06-18 15:30 | NUR ---
PICKED BY [facility] FOR TRANSFER TO [facility]. PT STABLE UPON DISCHARGE
== END 2021-06-18 15:40 | DRG 503 ==
LOC: MED 03:20 → MMU 10:13 → MTU 17:34
PROVIDERS: ADMIT Hospitalist; ATTEND Hospitalist
PROC: 0QSN04Z Reposition Right Metatarsal with Internal Fixation Device, Open Approach (ICD-10-PCS; principal; 2021-06-17 07:30)
DX: S92.351A Displaced fracture of fifth metatarsal bone, right foot, initial encounter for closed fracture (principal); N17.0 Acute kidney failure with tubular necrosis; E87.1 Hypo-osmolality and hyponatremia; F03.90 Unspecified dementia, unspecified severity, without behavioral disturbance, psychotic disturbance, mood disturbance, and anxiety; E04.2 Nontoxic multinodular goiter; F13.90 Sedative, hypnotic, or anxiolytic use, unspecified, uncomplicated; Z20.822 Contact with and (suspected) exposure to COVID-19; Z98.891 History of uterine scar from previous surgery; F32.9 Major depressive disorder, single episode, unspecified; M81.0 Age-related osteoporosis without current pathological fracture; Z98.82 Breast implant status; E78.5 Hyperlipidemia, unspecified; F43.10 Post-traumatic stress disorder, unspecified; I10 Essential (primary) hypertension; E04.1 Nontoxic single thyroid nodule; W18.39XA Other fall on same level, initial encounter; Y93.89 Activity, other specified; Y92.89 Other specified places as the place of occurrence of the external cause; Y99.8 Other external cause status; E87.6 Hypokalemia; F41.9 Anxiety disorder, unspecified; E86.0 Dehydration
CPT/HCPCS: 36415; 70450; 71045; 71260; 73630; 76536; 76770; 80048; 80053; 80305; 81001; 83735; 84100; 84439; 84443; 84484; 85025; 87081; 87086; 93005; 96360; 97110; 97112; 97116; 97163-GP; 97530; 99285; G0480; G0482; J0696; J1100; J1644; J1885; J2060; J2270; J2405; J2704; J2765; J3010; J3475; J3490; J7060; J7120; Q9967